=== PATIENT | female | born 1990 | race Caucasian/White ===

== ENCOUNTER 2016-11-24 08:36 | Day surgery (SDC) | payer BC ==
[~2016-11-24] VITALS: Ht 162.6 cm; Wt 54.4 kg
[~2016-11-24 08:36] MED LIST: ASPI-630 PO; BUPIVACAINE-EPI 0.5%-1:200000 50 ML VIAL. ONE; BUPR8TAB SL; CALC600T4 PO; HYDROmorphone 2 MG/ML VIAL IV PRN; IBUP-1027 PO; IOHEXOL 300 MG/ML 50 ML VIAL. ONE; IV RINGERS,LACTATED 1000ML 1,000 ML IV SCH; LIDOCAINE 1% 1 ML SYRINGE. ID PRN; LOSA100T2 PO; METO50TA2 PO; MORPHINE SULFATE 2 MG/ML DISP.SYRIN. IV PRN; MULT1TAB52 PO; ONDANSETRON PF 4 MG/2 ML VIAL. IV PRN; PROCHLORPERAZINE 10 MG/2 ML VIAL. IV PRN; SERT50TA PO; fentaNYL PF VIAL 100 MCG/2 ML VIAL IV PRN
[2016-11-24] MEDS ORDERED: LIDOCAINE 2% PF Vial for OR 5 ML VIAL. ONE (08:47)
[2016-11-24] MEDS ORDERED: DEXAMETHASONE SOD PHOS 20 MG/5 ML VIAL. ONE (08:47)
[2016-11-24] MEDS ORDERED: ONDANSETRON PF 4 MG/2 ML VIAL. ONE (08:47)
[2016-11-24] MEDS ORDERED: PROPOFOL 20 ML IV ONE (08:47)
[2016-11-24] MEDS ORDERED: MIDAZOLAM HCL/PF 2 MG/2 ML VIAL. ONE (08:48)
[2016-11-24] MEDS ORDERED: fentaNYL PF VIAL 100 MCG/2 ML VIAL ONE ×3 (08:48→11:14)
[2016-11-24] MEDS ORDERED: SURGICEL HEMOSTAT 4X8 EACH. ONE (09:10)
[2016-11-24 09:23] LABS: NEG OBC UR NEG; POS OBC UR POS
[2016-11-24 09:41] LABS: ALBUMIN 3.8 g/dL (3.4-5.0); TOTAL BILIRUBIN 0.2 mg/dL (0.2-1.0)
[2016-11-24] MEDS ORDERED: GLYCOPYRROLATE 1 MG/5 ML VIAL. ONE (10:19)
--- NOTE | 2016-11-24 10:23 | RAD ---
Indication protocol study. Assess for potential complications associated with cholecystectomy. For members of the Department of surgery fluoroscopy was provided 3 spot fluoroscopic images were obtained. Time associated with the imaging was 13 seconds. Those intrahepatic radicles which are seen appear normal. No filling defects suggesting choledocholithiasis are seen. A small amount of contrast is seen in the duodenum. IMPRESSION: Normal operative cholangiogram
[2016-11-24] MEDS ORDERED: PROCHLORPERAZINE 10 MG/2 ML VIAL. ONE (10:45)
--- NOTE | 2016-11-24 10:55 | DISCH ---
DISCHARGE INSTRUCTIONS Condition on Discharge Condition on Discharge: Stable Activity After Discharge Activity Instructions for Disc: Activity as tolerated, Avoid exertion Lifting Instructions after Dis: No heavy lifting Driving Instructions after Dis: Do not drive (3-4 days) Diet after Discharge Diet after Discharge: Regular Wound Incision Care Wound/Incision Care: Ice to area for comfort Follow-Up Follow up with: Maikel next week SHAHRIAR CHO MD Nov 24, 2016 10:55
[2016-11-24] MEDS: fentaNYL PF VIAL 100 MCG/2 ML VIAL IV PRN ×3 (11:04→11:26)
[2016-11-24] MEDS ORDERED: HYDR-971 PO (11:26)
[2016-11-24] MEDS ORDERED: HYDROcodone/APAP 5/325MG 1 TAB TABLET PO ONE ×2 (11:30)
--- NOTE | 2016-11-24 11:37 | OP ---
DATE OF SURGERY: 11/24/2016 PREOPERATIVE DIAGNOSIS: Biliary dyskinesia. POSTOPERATIVE DIAGNOSES: Biliary dyskinesia, Hwil-Sczl-Oudfiz adhesions. PROCEDURE: Laparoscopic cholecystectomy with cholangiogram and lysis of adhesions. SURGEON: Delbert Cho MD CARRY OUT CLERK AND SHELF STOCKER: FELICIANO Morejon ANESTHESIA: General endotracheal. ESTIMATED BLOOD LOSS: 10 mL. INTRAVENOUS FLUIDS: 1 L. INDICATIONS: The patient is a 26-year-old with right upper quadrant pain. She is brought for cholecystectomy. OPERATIVE FINDINGS: The liver was smooth and sharp. The gallbladder was supple. Cholangiograms were normal. There were several adhesions between the liver and abdominal wall consistent with Kfsz-Qreo-Ojqcbk syndrome. Remainder of the inspection of the abdomen failed to reveal obvious abnormalities. DESCRIPTION OF PROCEDURE: The patient brought to the operating suite, given a general endotracheal anesthetic and the abdomen prepped and draped in usual sterile fashion. An infraumbilical incision was infiltrated with local anesthetic, sharply incised and a 5 mm Visiport used to gain access into the abdominal cavity. Pneumoperitoneum was established. Camera inserted and inspection carried out with results as noted above. With the table in reverse Trendelenburg rolled to the left, the epigastric port was placed under direct vision. In the midclavicular and lateral port locations "alligator" graspers were placed and the gallbladder was retracted superolaterally. Prior to retraction of the gallbladder, the adhesions between the liver and abdominal wall were taken down sharply. Hemostasis was present. The cystic duct and cystic artery were exposed. The cystic duct was then clipped on the gallbladder side. Cholangiograms were made. These were normal. In light of this, the catheter was removed and the cystic duct was clipped x 3 and divided, taking care to avoid injury or compromise of the common duct. An anterior and posterior branch of the cystic artery were isolated, clipped and divided and the gallbladder freed from the bed with cautery dissection and placed in an EndoCatch bag. Good hemostasis was present. Skin incisions were closed with subcuticular 4-0 Monocryl and Steri-Strips after removing the graspers and seeing no evidence of bleeding. Abdomen decompressed. Sterile dressings applied. The patient awakened from her anesthetic and taken to the recovery room in satisfactory condition. DELBERT CHO MD DR: ALICE/tracy JOB#: [id number] / [id number]
[2016-11-24] MEDS ORDERED: SEVOFLURANE 61 TO 120 MINUTES. IH ONE (12:19)
[2016-11-24 13:05] VITALS: BP 119/65
--- NOTE | 2016-11-26 12:07 | PATHOLOGY ---
PATHOLOGY REPORT * * * * * * * * FINAL DIAGNOSIS: Gallbladder, "gallbladder and contents," cholecystectomy: - Mild chronic cholecystitis. - The attached lymph node reveals reactive changes. (SHA:mgr; 11/26/2016) REPORT ELECTRONICALLY SIGNED BY: Dov Willett M.D. DATE/TIME: 11/26/2016 12:06 * * * * * * * * GROSS PATHOLOGY: Received in formalin labeled "Carmela Jaimes and gallbladder with contents," is a intact 7.9 x 3.0 x 2.0 cm gallbladder with glistening blue-ordoñez serosal surface. Opening the gallbladder reveals green-yellow trabeculated mucosa and an average wall thickness of 0.1 cm. Calculi are not present and no masses are noted grossly. A 0.6 cm in greatest dimension lymph node is present at the cystic duct region. Cartridge Feeder sections from the body and fundus are submitted along with the proximal margin in cassette A1. (SWS; 11/24/2016) INITIAL CPT CODE(S): A; 80381 Professional services performed [place] [address] Technical services performed by [facility] at [address] [place] [address] [address] [address]. SPECIMEN(S) RECEIVED: A.Gallbladder with contents CLINICAL HISTORY: Biliary dyskinesia PATIENT: CARMELA JAIMES /AGE: 810/21/1990 (Age: 26) PATIENT #: [id number] ALT CASE #: SPECIMEN COLLECTION DATE: 11/24/2016 SPECIMEN RECEIVED DATE: 11/24/2016 [facility] - [id number] [place] [address] - PHONE: [phone] * * * END OF REPORT * * *
--- NOTE | 2016-12-04 11:07 | PDOC ---
BRIEF OPERATIVE NOTE Date: Nov 24, 2016 Pre-Op Diagnosis biliary dyskinesia Post-Op Diagnosis same with Wzvk-Xebk-Gdpxyf adhesions Procedure Performed l/s cholecystectomy with cholangiograms, JOIE Surgeon Maikel Anesthesia Type: General Blood Loss 10cc IV Fluid 1000cc Specimens Obtained GB SHAHRIAR CHO MD Dec 04, 2016 11:06
== END 2016-11-24 13:21 | disposition home or self-care (01) ==
LOC: SURG 08:36
PROVIDERS: ATTEND Surgery
DX: K82.8 Other specified diseases of gallbladder (principal); Z86.69 Personal history of other diseases of the nervous system and sense organs; Z87.440 Personal history of urinary (tract) infections; F32.9 Major depressive disorder, single episode, unspecified; Z72.89 Other problems related to lifestyle
CPT/HCPCS: 36415; 47563; 74300; 81025; 82040; 82247; 88304; J0690; J0780; J1100; J2250; J2405; J2704; J3010; J3490; J7030; J7120; Q9967; J2001